=== PATIENT | female | born 2000 | race Caucasian/White ===

== ENCOUNTER → 2018-04-28 18:22 | Outpatient (REF) | payer OTHER, SELFPAY ==
[2018-04-28 19:39] LABS: Thyroid Stimulating Hormone 1.51 uIU/mL (0.47-4.68)
[2018-05-03 14:54] LABS: Thyroid Peroxidase Antibodies > 900 IU/mL (< 9)
== END ==
LOC: LAB 18:22
PROVIDERS: Visit Provider Physician Assistant Medical
DX: Z83.49 Family history of other endocrine, nutritional and metabolic diseases (principal); R63.5 Abnormal weight gain
CPT/HCPCS: 36415; 84443; 86376